=== PATIENT | male | born 1975 | race Caucasian/White ===

== ENCOUNTER 2016-09-07 05:50 | Day surgery (SDC) | payer OTHER ==
[2016-09-07] MEDS ORDERED: LIDOCAINE W/ SODIUM BICARB 0.5 ML SYR ONE (05:56)
[2016-09-07] MEDS ORDERED: ceFAZolin Inj 2gm (Premix) 50 ML IV ONE (05:56)
[2016-09-07] MEDS ORDERED: Lactated Ringers 1,000 ML PRIMARY IV ONE ×2 (05:56→09:07)
[2016-09-07] MEDS ORDERED: Ropivacaine 0.2% VIAL 20 ML ONE (06:51)
[2016-09-07] MEDS ORDERED: EPINEPHrine Inj (1:1,000) 30mg/30ml vial ONE (06:51)
[2016-09-07] MEDS ORDERED: LIDOCAINE 2%/ EPI 1:200,000 - 20 ML VIAL ONE (07:12)
[2016-09-07] MEDS ORDERED: DEXAMETHASONE SOD PHOSPHATE 4 MG/1 ML VIAL ONE (07:13)
[2016-09-07] MEDS ORDERED: fentaNYL Inj 250 MCG/5 ML VIAL ONE (07:13)
[2016-09-07] MEDS ORDERED: BUPivacaine Inj 0.5% PF (5mg/ml) 30ml vial ONE (07:13)
[2016-09-07] MEDS ORDERED: MIDAZOLAM 5 MG/1 ML ONE (07:13)
[2016-09-07] MEDS ORDERED: CITRIC ACID/SODIUM CITRATE 30 ML CUP PO ONE (07:16)
[2016-09-07] MEDS ORDERED: PANTOPRAZOLE IV 40 MG VIAL ONE (07:17)
[2016-09-07] MEDS ORDERED: Sodium Chloride 0.9% vial 10 ML ONE (07:18)
[2016-09-07] MEDS ORDERED: LIDOCAINE MPF 2% - 5 ML (20 MG/1 ML) ONE (07:30)
[2016-09-07] MEDS ORDERED: SUCCINYLCHOLINE CHLORIDE 20 MG/1 ML - 10 ML ONE (07:31)
[2016-09-07] MEDS ORDERED: LIDOCAINE HCL 5 ML JEL TOPICAL ONE (07:36)
[2016-09-07] MEDS ORDERED: ONDANSETRON 4 MG/2 ML VIAL IVP PRN ×2 (09:20→10:44)
[2016-09-07] MEDS ORDERED: NORMAL SALINE 10 ML SYRINGE FLUSH IVP PRN ×2 (09:20→10:44)
[2016-09-07] MEDS ORDERED: Prochlorperazine Edisylate Inj 10mg/2ml vial IVP PRN (09:20)
[2016-09-07] MEDS ORDERED: MIDAZOLAM HCL 50 MG/10 ML VIAL IVP PRN (09:20)
[2016-09-07] MEDS ORDERED: HYDROmorphone 2 MG/1 ML IVP PRN (09:20)
--- NOTE | 2016-09-07 09:26 | CRNA.PROCE ---
Nerve Block Documentation - - Type of Nerve Block Used: Right Interscalene Block Position for Nerve Block: Supine Moniters Used During Block: EKG, SPO2, NIBP Oxygen Sumpplented: Yes Sedation Used - Enter Amount in Comment Field: Midazolam (mg): Yes (3mg), Fentanyl (mcg): Yes (150mcg) Skin Prep Used: ChloroPrep Draped: No Technique: Nerve Stimulator Nerve Block Needle Used: 40 mm ProBlk II Stimulation Hz: 2 Stimulation Staring mA: 1.2 Stimulation Ending mA: 0.48 Local Anesthetic - Enter Amt in Comment Field: 0.5 % Bupivacaine Plain (mL): Yes (20ml), 2 % Xylocaine with Epinephrine 1:200,000 (mL): Yes (20ml) Additives to Nerve Blocks: Dexamethasone (mL): Yes (8mg(2ml))
[2016-09-07] MEDS ORDERED: Lactated Ringers 1,000 ML PRIMARY IV SCH ×2 (09:30→10:45)
[2016-09-07] MEDS ORDERED: KETOROLAC 30 MG/1 ML VIAL ONE (10:34)
[2016-09-07] MEDS ORDERED: Prochlorperazine Tab 10 MG TAB PO PRN (10:44)
[2016-09-07] MEDS ORDERED: BISACODYL 5 MG TABLET PO PRN (10:44)
[2016-09-07] MEDS ORDERED: IBUPROFEN 400 MG TABLET PO PRN (10:44)
[2016-09-07] MEDS ORDERED: CALCIUM CARBONATE 500 MG (TUMS) CHEWABLE TABLET PO PRN (10:44)
[2016-09-07] MEDS ORDERED: BISACODYL 10 MG SUPPOSITORY RECTAL PRN (10:44)
[2016-09-07] MEDS ORDERED: MORPHINE SULFATE 2 MG/1 ML IVP PRN (10:44)
[2016-09-07] MEDS ORDERED: Ondansetron ODT Tab 8 MG TAB PO PRN (10:44)
[2016-09-07] MEDS ORDERED: diphenhydrAMINE 25 MG CAPSULE PO PRN (10:44)
[2016-09-07] MEDS ORDERED: HYDROcodone-APAP 10 MG-325 MG TABLET PO PRN (10:44)
[2016-09-07] MEDS ORDERED: ACETAMINOPHEN 325 MG TABLET PO PRN (10:44)
[2016-09-07] MEDS ORDERED: MAG HYDROX/AL HYDROX/SIMETH 30 ML SUSP PO PRN (10:44)
[2016-09-07] MEDS ORDERED: oxyCODONE/APAP 7.5/325 Tab 1 TAB TAB PO PRN (10:49)
[2016-09-07] MEDS ORDERED: ONDANSETRON 4 MG/2 ML VIAL ONE (11:41)
[2016-09-07 14:14] VITALS: TEMP 97
[2016-09-07 14:16] VITALS: RESP 17
--- NOTE | 2016-09-07 16:17 | OPS SHOULD ---
Diagnosis : Right Rotator Cuff/Subscapularis, Biceps Tenodesis/AYDEE/Maricruz Referral Reason: Instruction in Activities of Daily Living/Shoulder Cryo Cuff O: The patient was instructed in activities of daily living including dressing and bathing as well as shoulder do's and don'ts. The patient was issued a cryo cuff for the right shoulder and instructed in its proper use and care. P: No further therapy is indicated at this time. The patient will begin outpatient physical therapy. DAVEY
== END 2016-09-07 13:55 | disposition home or self-care (01) ==
LOC: SDSC 05:50
PROVIDERS: ATTEND Orthopaedic Surgery
DX: M75.21 Bicipital tendinitis, right shoulder (principal); S46.811A Strain of other muscles, fascia and tendons at shoulder and upper arm level, right arm, initial encounter
CPT/HCPCS: 23412; 23430; 29823; 97535; A4216; J0171; J0690; J1885; J2704; J2795; J3010; J0330; J1100; J2001; J2250; J2405; J3490; J7120

== ENCOUNTER → 2016-12-06 | Outpatient (CLI) | payer OTHER ==
[2016-12-06 14:21] LABS: BLOOD UREA NITROGEN 16 mg/dL (7-22); BUN/CREATININE RATIO 17.77 (6-20); EST GLOMERULAR FILTRATION > 60 (>60 ml/min/1.73m(2)); SERUM ALBUMIN 4.6 g/dL (3.5-4.8)
[2016-12-06 14:29] LABS: CHOL/HDL RATIO 3.57 RATIO (0-4.0); LDL CHOLESTEROL,CALCULATED 130.6 mg/dL
== END ==
LOC: MOB LAB 12:10
PROVIDERS: ATTEND Student in an Organized Health Care Education/Training Program
DX: E78.5 Hyperlipidemia, unspecified (principal); Z79.899 Other long term (current) drug therapy
CPT/HCPCS: 36415; 80053; 80061